=== PATIENT | male | born 1940 | race Caucasian/White ===

== ENCOUNTER 2017-09-06 11:07 | Outpatient (CLI) | payer OTHER ==
[~2017-09-06 11:07] MED LIST: CIPRO500 MG PO; NORVASC5 MG; PLAVIX75 MG; SEROQUEL50 MG; TRIPLE ANTIBIOT15 GM TP; VASOTEC10 MG
== END 2017-09-06 11:14 | disposition home or self-care (01) ==
LOC: RAD 11:07
DX: M17.0 Bilateral primary osteoarthritis of knee (principal)

== ENCOUNTER 2020-04-29 15:03 | Outpatient (CLI) | payer OTHER | END 2020-04-29 16:14 | disposition home or self-care (01) | LOC: TOM 15:03 | PROVIDERS: ATTEND Internal Medicine Cardiovascular Disease | DX: M54.81 Occipital neuralgia (principal) ==

== ENCOUNTER → 2021-05-05 | Emergency (ER) | payer OTHER ==
[~2021-05-05] VITALS: Ht 203.2 cm; Wt 77.1 kg
[~2021-05-05] MED LIST changes: +WELLBUTRIN XL300 MG PO
== END | disposition home or self-care (01) ==
LOC: ER 11:19
DX: R53.83 Other fatigue (principal)

== ENCOUNTER → 2021-05-29 | Emergency (ER) | payer OTHER ==
[~2021-05-29] VITALS: Ht 175.3 cm; Wt 72.6 kg
== END | disposition expired ==
LOC: ER 11:03
DX: R57.8 Other shock (principal); J96.00 Acute respiratory failure, unspecified whether with hypoxia or hypercapnia; R77.8 Other specified abnormalities of plasma proteins; C79.2 Secondary malignant neoplasm of skin; C80.1 Malignant (primary) neoplasm, unspecified; C78.00 Secondary malignant neoplasm of unspecified lung; C78.7 Secondary malignant neoplasm of liver and intrahepatic bile duct; C79.40 Secondary malignant neoplasm of unspecified part of nervous system; C79.51 Secondary malignant neoplasm of bone; I12.9 Hypertensive chronic kidney disease with stage 1 through stage 4 chronic kidney disease, or unspecified chronic kidney disease; N18.9 Chronic kidney disease, unspecified; N39.0 Urinary tract infection, site not specified; B96.29 Other Escherichia coli [E. coli] as the cause of diseases classified elsewhere; E87.5 Hyperkalemia; E87.2 Acidosis; Z87.891 Personal history of nicotine dependence; Z66 Do not resuscitate